=== PATIENT | male | born 1940 | race Two or more races ===

== ENCOUNTER → 2016-06-12 | Day surgery (SDC) | payer MEDICARE, OTHER ==
--- NOTE | 2016-06-11 23:27 | Pre-Procedure Note/Attestation ---
Pre-Procedure Note/Attestation Complete Prior to Procedure Planned Procedure: left - Removal of cataract and placement of intraocular lens , left eye Procedure Narrative: Removal of cataract and placement of intraocular lens, left eye Indications for Procedure Pre-Operative Diagnosis: cataract, nuclear, posterior subcapsular, left eye Attestation I attest that I discussed the nature of the procedure; its benefits; risks and complications; and alternatives (and the risks and benefits of such alternatives ), prior to the procedure, with the patient (or the patient's legal electronics parts sales representative). I attest that, if there was a reasonable possibility of needing a blood transfusion, the patient (or the patient's legal electronics parts sales representative) was given the [place] Department of Health Services standardized written summary, pursuant to the Federico [place] Blood Safety Act ([place] Health and Safety Code # 1645, as amended). I attest that I re-evaluated the patient just prior to the surgery and that there has been no change in the patient's H&P, except as documented below: Zeus Whitlock MD Jun 11, 2016 23:27
[~2016-06-12] VITALS: Ht 167.6 cm; Wt 67.1 kg
[2016-06-12] VITALS (8 sets, daily range): BP systolic 144–163; BP diastolic 75–84
[~2016-06-12] MED LIST: ATORVASTATIN CA40 MG ORAL; BSS 15ml BTL ONE; BSS 500ml btl ONE; Carbachol 0.01% Op Soln 1.5ml vial ONE; Ciprofloxacin Opth Soln ONE; DOCUSATE SODIU100 M2 ORAL; Dexamethasone 4mg/ml vial ONE; EPINEPHrine 1mg/1ml Amp ONE; Fluorescein Strips ONE; LISINOPRIL20 MG ORAL; LR 1000ml ONE; Lidocaine 1% MPF 10mg/ml 5ml ONE; Lidocaine 4% Amp ONE; MYTAB GAS80 MG PO; Maxitrol Opth Oint 3.5gm ONE; Midazolam 2mg/2ml Inj ONE; NS Irrig 1000ml ONE; PROSCAR5 MG ORAL; Povidone-Iodine 5% opth solution ONE; Pred Forte 1% Opth Susp 1ml LEFT EYE ONE; Pred Forte 1% Opth Susp 1ml ONE; SENNA8.6 M2 PO; Sodium Hyaluronate 10 mg/ml 0.85ml ONE; Sterile Water Irrig 1000ml IRRIG ONE; TAMSULOSIN HCL0.4 MG ORAL; Tetracaine 0.5% Opth Soln ONE; fentaNYL 100 mcg/2 mL IV ONE
[2016-06-12] MEDS: Cyclopentolate 1% Opth Sol LEFT EYE SCH ×3 (07:45→08:21)
[2016-06-12] MEDS: Phenylephrine 10% Opth Soln 5ml LEFT EYE SCH ×3 (07:46→08:21)
[2016-06-12] MEDS: Gatifloxacin Opth Solution 0.5% LEFT EYE SCH ×3 (07:48→08:22)
[2016-06-12] MEDS: Flurbiprofen 0.03% Opth Sol 2.5ml LEFT EYE SCH ×3 (07:48→08:22)
[2016-06-12] MEDS: Akten 3.5% 1ml Btl LEFT EYE SCH ×3 (07:49→08:23)
--- NOTE | 2016-06-12 10:22 | Discharge Instructions ---
Discharge Instructions Discharge Instructions Follow Up Orders Continue pre op eye drops Wear shield at all times except to place eye drops Followup tomorrow in Dr Whitlock's office For Congestive Heart Failure Reminder Report to your physician any weight gain of 5 pounds or more in one week. Zeus Whitlock MD Jun 12, 2016 10:22
--- NOTE | 2016-06-12 10:23 | Immediate Post-Op Evaluation ---
Immediate Post-Op Evalulation Immediate Post-Op Evalulation Procedure: cataract extraction left eye Date of Evaluation: Jun 12, 2016 Time of Evaluation: 10:15 IV Fluids: 300 Blood Pressure Systolic: 159 Blood Pressure Diastolic: 81 Pulse Rate: 60 Respiratory Rate: 14 O2 Sat by Pulse Oximetry: 96 Temperature (Fahrenheit): 97.8 Nausea: No Vomiting: No Complications none Patient Status: awake, patent Hydration Status: adequate Drug: none GERALDINE KERR CRNA Jun 12, 2016 10:23
--- NOTE | 2016-06-12 10:25 | Anethesia Preoperative Eval ---
Anesthesia Pre-op PMH/ROS General Date of Evaluation: Jun 12, 2016 Time of Evaluation: 09:30 Anesthesiologist: sussy ASA Score: ASA 2 Mallampati Score Class I : Soft palate, uvula, fauces, pillars visible Class II: Soft palate, uvula, fauces visible Class III: Soft palate, base of uvula visible Class IV: Only hard plate visible Mallampati Classification: Class II Surgeon: re Diagnosis: cataract Surgical Procedure: cataract extraction left eye Anesthesia History: none Family History: no anesthesia problems Allergies: Coded Allergies: No Known Allergies (Unverified , 06/11/16) Past Medical History Cardiovascular: Reports: HTN Gastrointestinal/Genitourinary: Reports: other - bph Neurologic/Psychiatric: Denies: CVA, TIA, dementia, depression/anxiety, other Endocrine: Reports: DM HEENT: Reports: cataract (L) Hematology/Immune: Denies: DVT, anemia, bleeding disorder, other Musculoskeletal/Integumentary: Denies: DDD, DJD, OA, RA, edema, other PSxH Narrative: I and D Anesthesia Pre-op Phys. Exam Physician Exam Last Vital Signs Date Time Temp Pulse Resp B/P Pulse Ox O2 Delivery O2 Flow Rate FiO2 06/12/16 07:51 97.3 58 18 163/84 98 Room Air Constitutional: NAD Neurologic: CN 2-12 intact Cardiovascular: RRR Respiratory: CTA Gastrointestinal: S/NT/ND Airway Exam Mallampati Classification 2 Mallampati Score: Class II MO: full ROM: full Dentures: no lower, no upper Anesthesia Pre-op A/P Studies Pre-op Studies: EKG - sr Risk Assessment & Plan Plan: mac Status Change Before Surgery: No Pre-Antibiotics Drug: none GERALDINE KERR CRNA Jun 12, 2016 10:25
--- NOTE | 2016-06-12 10:42 | 48 Hour Post Anesthesia Eval ---
Post Anesthesia Evaluation Procedure: cataract extraction left eye Date of Evaluation: Jun 12, 2016 Time of Evaluation: 10:41 Blood Pressure Systolic: 154 0: 60 Pulse Rate: 75 Respiratory Rate: 14 O2 Sat by Pulse Oximetry: 96 Airway: patent Nausea: No Vomiting: No Hydration Status: adequate Mental Status/LOC: patient returned to baseline Post-Anesthesia Complications: none Follow-up care needed: N/A GERALDINE KERR CRNA Jun 12, 2016 10:42
--- NOTE | 2016-06-12 11:56 | Brief Operative Note ---
Immediate Post Operative Note Operative Note Pre-op Diagnosis: cataract, nuclear, posterior subcapsular, left eye Procedure: phaco pc iol, OS use of iris retractors, OS Post-op Diagnosis: Cataract, nuclear, posterior subcapsular, left eye floppy iris syndrome, OS Surgeon: Robbin Whitlock MD Pressure Tester Operator: none Anesthesiologist: Saulo Spencer CRNA Anesthesia: local, MAC Specimen: none Condition: stable Estimated Blood Loss: minimal Drains: CHAVA Implant(s) used?: Yes - tecralph zcb00 21.0 Zeus Whitlock MD Jun 12, 2016 11:56
--- NOTE | 2016-06-13 08:08 | Operative Note - Dictated ---
DATE OF OPERATION: 06/12/2016 SURGEON: Zeus Whitlock M.D. RUBBER MOULDING MACHINE OPERATOR SURGEON: None. ANESTHESIOLOGIST: ROSANNE Spencer. ANESTHESIA: Local/standby/monitored anesthesia care. PREOPERATIVE DIAGNOSIS: Cataract, nuclear, primary sclerosing cholangitis, left eye. POSTOPERATIVE DIAGNOSES: 1. Cataract, nuclear, primary sclerosing cholangitis, left eye. 2. Floppy iris syndrome, left eye. PROCEDURES: 1. Phacoemulsification of cataract, with placement of posterior chamber intraocular lens, left eye (model TECNIS ZCB00, power 21.0). 2. Use of iris retractors. SPECIMENS: None. COMPLICATIONS: None. INDICATIONS FOR SURGERY: The patient has had the painless progressive decrease in visual acuity in the left eye secondary to cataract. The patient understands the risk of surgery including infection, bleeding, need for further surgery, loss of vision, no improvement in vision, loss of the eye, loss of life, glaucoma, retinal detachment, and understands these risks and elects to proceed with surgery. FINDINGS: The patient had a +3 central nuclear sclerotic cataract as well as a +2 posterior subcapsular cataract. While sculpting the nucleus, it became quite evident that there was a floppy iris syndrome as the iris became very floppy in nature and began to constrict. When the pupil constricted during the procedure, I stopped the procedure and placed the iris retractors. Operative Note: After informed consent was obtained, the patient was brought into the operating room and placed in supine position. Cardiac and respiratory monitors were attached. A time-out was performed and all criteria were met and everyone in the room agreed. The left eye was then draped and prepped in a sterile manner for ocular surgery. A lid speculum was placed in the eye. Shugarcaine was injected at approximately 2 o'clock limbus. A conjunctival peritomy from approximately 1:30 to 3 o'clock was made and dissected posteriorly. Hemostasis was maintained with bipolar cautery. A 2.6 mm of limbal incision was made centered at approximately 2 o'clock and dissected anteriorly. A paracentesis was then made at approximately 5 o'clock and Shugarcaine was injected into the anterior chamber followed by Healon. The anterior chamber was then entered using a 2.6 mm keratome through the limbal incision. An anterior capsulorrhexis was then performed. Hydrodissection and hydrodelineation of the lens was then performed. I then began to sculpt the nucleus in a divide and conquer four-quadrant technique. Just at the beginning of the second part of the sculpting, the iris grossly became very floppy and it began to constrict. It began to constrict so much that it was limiting my visualization. At this point, I stopped the procedure putting a 10-0 nylon interrupted suture in the wound and then made four port paracentesis sites and placed iris retractors to expand the pupil. I then removed the 10-0 nylon suture and continued sculpting the nucleus in a divide and conquer four-quadrant technique. The epinucleus was then removed. Inspiration and aspiration of the residual cortical material was then performed. Healon was then injected into the anterior chamber and capsular bag. The lens was taken from its packaging and placed into the cartridge and the tip of the cartridge was placed through the limbal incision and then the lens was injected into the capsular bag. Both haptics and optic were noted to be in the capsular bag. The iris retractors were then removed. The Healon was aspirated from the anterior chamber and capsular bag. Miostat was injected into the anterior chamber. The pupil came down nicely and round. The capsule remained intact during the entire procedure. One 10-0 nylon interrupted suture was then placed in the wound. The knot was rotated and buried. Care was taken during the entire procedure not to touch the endothelium. All paracentesis sites were hydrated and closed. The wounds were checked with the fluorescein strip and found to be Christa negative for 360 degrees, that is at every wound. The conjunctiva was then closed with forceps cautery. The lid speculum and drapes were removed from the eye and one drop of Betadine was placed onto the ocular surface. Pred Forte and ciprofloxacin drops were applied to the eye. Maxitrol ointment was applied to the eye. This was all done after the drapes were removed from the eye. Then one shield was placed onto the eye. The patient tolerated the procedure well and left the operating room awake, alert, and in stable condition. He is to follow up the next day, but sooner on a p.r.n. basis. Zeus Whitlock M.D. DR: JULIETH JOB#: [id number] CC:
== END | disposition home or self-care (01) ==
LOC: SUR 07:09
DX: H25.12 Age-related nuclear cataract, left eye (principal); H25.042 Posterior subcapsular polar age-related cataract, left eye; H21.81 Floppy iris syndrome; I25.10 Atherosclerotic heart disease of native coronary artery without angina pectoris; E11.9 Type 2 diabetes mellitus without complications; I10 Essential (primary) hypertension; E78.5 Hyperlipidemia, unspecified; G25.81 Restless legs syndrome; N40.1 Benign prostatic hyperplasia with lower urinary tract symptoms; R35.1 Nocturia; R39.15 Urgency of urination; Z86.718 Personal history of other venous thrombosis and embolism; Z86.711 Personal history of pulmonary embolism
CPT/HCPCS: 66982; 82962; J0171; J0360; J1100; J2250; J3010; J7120; V2632; 94003; 94150

== ENCOUNTER 2016-10-02 08:08 | Day surgery (SDC) | payer MEDICARE, OTHER ==
[~2016-10-02] VITALS: Ht 165.1 cm; Wt 67.6 kg
[2016-10-02] VITALS (10 sets, daily range): BP systolic 101–155; BP diastolic 69–85
--- NOTE | 2016-10-02 07:28 | Pre-Procedure Note/Attestation ---
Pre-Procedure Note/Attestation Complete Prior to Procedure Planned Procedure: right - Removal of cataract and placement of intraocular lens, right eye Possible use of iris retractors, right eye Procedure Narrative: Removal of cataract and placement of intraocular lens, right eye Probable use of iris retractors, right eye Indications for Procedure Pre-Operative Diagnosis: Cataract, nuclear, right eye H/O floppy iris syndrome Attestation I attest that I discussed the nature of the procedure; its benefits; risks and complications; and alternatives (and the risks and benefits of such alternatives ), prior to the procedure, with the patient (or the patient's legal agency service representative). I attest that, if there was a reasonable possibility of needing a blood transfusion, the patient (or the patient's legal agency service representative) was given the [place] Department of Health Services standardized written summary, pursuant to the Federico [place] Blood Safety Act ([place] Health and Safety Code # 1645, as amended). I attest that I re-evaluated the patient just prior to the surgery and that there has been no change in the patient's H&P, except as documented below: Zeus Whtilock MD Oct 02, 2016 07:28
[~2016-10-02 08:08] MED LIST changes: -BSS 15ml BTL ONE; -BSS 500ml btl ONE; -Carbachol 0.01% Op Soln 1.5ml vial ONE; -Ciprofloxacin Opth Soln ONE; -Dexamethasone 4mg/ml vial ONE; -EPINEPHrine 1mg/1ml Amp ONE; -Fluorescein Strips ONE; -LR 1000ml ONE; -Lidocaine 1% MPF 10mg/ml 5ml ONE; -Lidocaine 4% Amp ONE; -Maxitrol Opth Oint 3.5gm ONE; -Midazolam 2mg/2ml Inj ONE; -NS Irrig 1000ml ONE; -Povidone-Iodine 5% opth solution ONE; -Pred Forte 1% Opth Susp 1ml LEFT EYE ONE; -Pred Forte 1% Opth Susp 1ml ONE; +Pred Forte 1% Opth Susp 1ml RIGHT EYE ONE; -Sodium Hyaluronate 10 mg/ml 0.85ml ONE; -Sterile Water Irrig 1000ml IRRIG ONE; -Tetracaine 0.5% Opth Soln ONE; -fentaNYL 100 mcg/2 mL IV ONE
[2016-10-02] MEDS ORDERED: Phenylephrine 10% Opth Soln 5ml ONE (08:31)
[2016-10-02] MEDS ORDERED: Vigamox Opth Soln ONE (08:31)
[2016-10-02] MEDS ORDERED: Akten 3.5% 1ml Btl ONE (08:32)
[2016-10-02] MEDS ORDERED: Flurbiprofen 0.03% Opth Sol 2.5ml ONE (08:32)
[2016-10-02] MEDS ORDERED: Cyclopentolate 1% Opth Sol ONE (08:32)
[2016-10-02] MEDS: Vigamox Opth Soln RIGHT EYE SCH ×3 (08:43→09:01)
[2016-10-02] MEDS: Flurbiprofen 0.03% Opth Sol 2.5ml RIGHT EYE SCH ×3 (08:43→09:01)
[2016-10-02] MEDS: Akten 3.5% 1ml Btl RIGHT EYE SCH ×3 (08:43→09:01)
[2016-10-02] MEDS: Cyclopentolate 1% Opth Sol RIGHT EYE SCH ×3 (08:43→09:02)
[2016-10-02] MEDS: Phenylephrine 10% Opth Soln 5ml RIGHT EYE SCH ×3 (08:43→09:01)
[2016-10-02] MEDS ORDERED: Pred Forte 1% Opth Susp 1ml ONE (08:46)
[2016-10-02] MEDS ORDERED: NS Irrig 1000ml ONE (10:30)
[2016-10-02] MEDS ORDERED: Sterile Water Irrig 1000ml IRRIG ONE (10:30)
[2016-10-02] MEDS ORDERED: ePHEDrine 50mg/ml Inj ONE (10:30)
[2016-10-02] MEDS ORDERED: LR 1000ml ONE (10:30)
[2016-10-02] MEDS ORDERED: Midazolam 2mg/2ml Inj ONE (10:30)
[2016-10-02] MEDS ORDERED: fentaNYL 100 mcg/2 mL IV ONE (10:30)
[2016-10-02] MEDS ORDERED: Propofol 10mg/ml 20ml IV ONE (10:30)
[2016-10-02] MEDS ORDERED: Lidocaine 4% Amp ONE (10:39)
[2016-10-02] MEDS ORDERED: BSS 15ml BTL ONE (10:40)
[2016-10-02] MEDS ORDERED: EPINEPHrine 1mg/1ml Amp ONE ×3 (10:40→13:53)
[2016-10-02] MEDS ORDERED: DiphenhydrAMINE 50mg/ml Inj ONE (10:40)
--- NOTE | 2016-10-02 11:09 | Anethesia Preoperative Eval ---
Anesthesia Pre-op PMH/ROS General Date of Evaluation: Oct 02, 2016 Time of Evaluation: 10:35 Anesthesiologist: je ASA Score: ASA 3 Mallampati Score Class I : Soft palate, uvula, fauces, pillars visible Class II: Soft palate, uvula, fauces visible Class III: Soft palate, base of uvula visible Class IV: Only hard plate visible Mallampati Classification: Class II Surgeon: re Diagnosis: cataract right eye Surgical Procedure: removal of cataract and placement of IOL right eye Anesthesia History: none Family History: no anesthesia problems Allergies: Coded Allergies: No Known Allergies (Unverified , 06/11/16) Medications: see eMAR Past Medical History Cardiovascular: Reports: CAD, HTN Pulmonary: Denies: COPD, ADITHYA, asthma, other Gastrointestinal/Genitourinary: Reports: other - enlarged prostate Neurologic/Psychiatric: Denies: CVA, TIA, dementia, depression/anxiety, other Endocrine: Denies: DM, hypothyroidism, other, steroids HEENT: Reports: cataract (L), cataract (R) Hematology/Immune: Denies: DVT, anemia, bleeding disorder, other Musculoskeletal/Integumentary: Denies: DDD, DJD, OA, RA, edema, other Anesthesia Pre-op Phys. Exam Physician Exam Last Vital Signs Date Time Temp Pulse Resp B/P Pulse Ox O2 Delivery O2 Flow Rate FiO2 10/02/16 09:07 97.9 54 18 128/71 98 Room Air Constitutional: NAD Neurologic: CN 2-12 intact Cardiovascular: RRR Respiratory: CTA Gastrointestinal: S/NT/ND Airway Exam Mallampati Score: Class III MO: full ROM: full Teeth: other - implants permenant Dentures: no lower, no upper Anesthesia Pre-op A/P Labs chart reviewed Studies Pre-op Studies: EKG - NSB Risk Assessment & Plan Plan: MAC Status Change Before Surgery: No Pre-Antibiotics Given Within 1 Hr of Incision: No Brianne Bustamante CRNA Oct 02, 2016 11:09
[2016-10-02] MEDS ORDERED: Dexamethasone 4mg/ml vial ONE ×2 (11:55→13:53)
[2016-10-02] MEDS ORDERED: BSS 500ml btl ONE (11:55)
[2016-10-02] MEDS ORDERED: Povidone-Iodine 5% opth solution ONE (11:56)
--- NOTE | 2016-10-02 12:13 | Discharge Instructions ---
Discharge Instructions Discharge Instructions Follow Up Orders Continue pre op eye drops Wear shield at all times except to place eye drops Follow up in Dr Whitlock's office tomorrow For Congestive Heart Failure Reminder Report to your physician any weight gain of 5 pounds or more in one week. Zeus Whitlock MD Oct 02, 2016 12:12
--- NOTE | 2016-10-02 12:15 | Brief Operative Note ---
Immediate Post Operative Note Operative Note Pre-op Diagnosis: Cataract, nuclear, cortical, right eye Procedure: Phaco pc iol, right eye Post-op Diagnosis: same as pre-op Surgeon: Suly Whitlock MD MS Additional Surgeons: none Anesthesiologist: Asfi Bustamante CRNA Anesthesia: general - Local/MAC converted to GET, local Specimen: none Complications: none Estimated Blood Loss: minimal Implant(s) used?: Yes - jane tecnis zcb00 20.0 Zeus Whitlock MD Oct 02, 2016 12:15
--- NOTE | 2016-10-02 13:13 | Immediate Post-Op Evaluation ---
Immediate Post-Op Evalulation Immediate Post-Op Evalulation Date of Evaluation: Oct 02, 2016 Time of Evaluation: 12:15 IV Fluids: 1000 Blood Pressure Systolic: 135 Blood Pressure Diastolic: 51 Pulse Rate: 65 Respiratory Rate: 18 O2 Sat by Pulse Oximetry: 100 Temperature (Fahrenheit): 97.2 Pain Score (1-10): 0 Nausea: No Vomiting: No Patient Status: reacts Hydration Status: adequate Given Within 1 Hr of Incision: Brianne Brewer CRNA Oct 02, 2016 13:13
--- NOTE | 2016-10-02 13:14 | 48 Hour Post Anesthesia Eval ---
Post Anesthesia Evaluation Date of Evaluation: Oct 02, 2016 Time of Evaluation: 12:25 Blood Pressure Systolic: 130 0: 50 Pulse Rate: 62 Respiratory Rate: 16 Temperature (Fahrenheit): 97.2 O2 Sat by Pulse Oximetry: 100 Airway: patent Nausea: No Vomiting: No Pain Intensity: 0 Hydration Status: adequate Mental Status/LOC: patient returned to baseline Follow-up care needed: patient intructions given Brianne Bustamante CRNA Oct 02, 2016 13:14
[2016-10-02] MEDS ORDERED: Lidocaine 1% MPF 10mg/ml 5ml ONE (13:52)
[2016-10-02] MEDS ORDERED: Maxitrol Opth Oint 3.5gm ONE (13:53)
[2016-10-02] MEDS ORDERED: Tetracaine 0.5% Opth Soln ONE (13:53)
--- NOTE | 2016-10-03 00:45 | Operative Note - Dictated ---
DATE OF OPERATION: 10/02/2016 SURGEON: Zeus Whitlock M.D. INSTRUCTIONAL DESIGN TECHNOLOGIST SURGEON: None. ANESTHESIOLOGIST: , REGISTER OF DEEDS. ANESTHESIA: Local/MAC converted to general anesthesia. PREOPERATIVE DIAGNOSIS: Dense, nuclear, cortical cataract, right eye. POSTOPERATIVE DIAGNOSIS: Dense, nuclear, cortical cataract, right eye. PROCEDURE: 1. Phacoemulsification of cataract, right eye. 2. Placement of posterior chamber intraocular lens, right eye (model ERIC, TECNIS ZCB00, power 20.0). SPECIMENS: None. COMPLICATIONS: None. INDICATIONS FOR SURGERY: The patient has had a painless progressive decrease in visual acuity in the right eye secondary to a cataract. The patient also has a history of floppy iris syndrome in the left eye. The patient understands the risks of surgery including infection, bleeding, need for further surgery, loss of vision, no improvement in vision, loss of the eye, loss of life, glaucoma, retinal detachment, and understands these risks and elects to proceed with surgery. FINDINGS: The patient had a very dense +4 nuclear sclerotic cataract as well as +3 cortical changes. In addition, during the procedure, the phaco handpiece stopped working as it was not producing any ultrasound and the handpiece had to be changed. Because of the dense nature of the cataract, two bottles of BSS fluid had to be used with the phaco unit. During the initial part of the procedure, after the right eye was draped and prepped, the patient could not hold still. This was despite maximal local/monitored care anesthesia. The drapes were then removed and the case was converted to a general anesthesia. Operative Note: After informed consent was obtained, the patient was brought into the operating room and placed in the supine position. Cardiac and respiratory monitors were attached. A time-out was performed and all criteria were met and everyone in the room agreed. The right eye was then draped and prepped in sterile manner for ocular surgery. A lid speculum was placed in the eye. A 6-0 silk suture was placed through the superior rectus muscle because the patient was moving his eyes upwards. A 1% lidocaine preservative-free was injected at the approximate 9:30 limbus. A conjunctiva peritomy from approximately 9:30 to 10:30 was made and dissected posteriorly. Hemostasis was maintained with bipolar cautery. The patient was constantly moving at this point despite anesthesia, given him more sedation. I was able to make a 2.6 mm limbal incision and dissected anteriorly and also a paracentesis at approximately 12 o'clock with injected Shugarcaine and Healon. I was able to enter the anterior chamber safely, but I did not perform the capsulorrhexis. The patient constantly kept moving despite maximal local sedation. At this point, I put one 10-0 nylon interrupted suture in a [id number] fashion through the wound and knotted down and checked the wound and found to be watertight. The lid speculum and drapes were removed from the eye and general anesthesia was induced without complications. Again, the right eye was then draped and prepped in the sterile manner for ocular surgery. A lid speculum was placed in the eye. The suture was removed from the limbal incision. An anterior capsulorrhexis was then performed. Hydrodissection and hydrodelineation also was then performed. The lens was phacoemulsified using divide and conquer four-quadrant technique. The lens was found to be very dense centrally and also very deep. The phaco handpiece stopped working, not producing any ultrasound and this had to be changed. After this was changed, the bottle of BSS for the phaco unit was also changed. Hydrodissection and hydrodelineation of the lens had been done and after the phaco handpiece was replaced during the scoping, I will continue to finishing the four-quadrant delineation of the lens and removing the nucleus. The cortical material was then aspirated. Healon was injected into the anterior chamber and capsular bag. The lens was taken from its package, placed into the cartridge and the tip of the cartridge was placed through the limbal wound and the lens was injected into the capsular bag and centered nicely with a [place]ins[place] hook. Healon was then aspirated from the anterior chamber and capsular bag. One 10-0 nylon interrupted suture was then placed through the limbal incision and the knot was rotated and buried. Care was taken during the entire procedure not to touch the endothelium. The wound was checked and found to be watertight. The conjunctiva was then closed with forceps cautery. The lid speculum and drapes removed from the eye and drops of Vigamox and Pred Forte were applied to the eye followed by Maxitrol ointment and then a shield. The patient tolerated the procedure well and was extubated in the operating room and left the operating room awake and alert in stable condition. Zeus Whitlock M.D. DR: PIETER JOB#: [id number] CC:
== END 2016-10-02 14:05 | disposition home or self-care (01) ==
LOC: SUR 08:08
DX: H25.11 Age-related nuclear cataract, right eye (principal); H25.011 Cortical age-related cataract, right eye; N40.0 Benign prostatic hyperplasia without lower urinary tract symptoms; N32.81 Overactive bladder; I10 Essential (primary) hypertension; E78.5 Hyperlipidemia, unspecified; G25.81 Restless legs syndrome; G89.29 Other chronic pain; M54.5 Low back pain; R73.03 Prediabetes; K59.00 Constipation, unspecified; Z79.82 Long term (current) use of aspirin; Z79.899 Other long term (current) drug therapy; Z86.718 Personal history of other venous thrombosis and embolism; Z86.711 Personal history of pulmonary embolism
CPT/HCPCS: 66984; J0171; J1100; J1200; J2250; J2704; J3010; J7120; V2632; 94003; 94150